=== PATIENT | male | born 1995 | race Caucasian/White ===

== ENCOUNTER 2022-07-18 18:43 | Emergency (ER) | payer SELFPAY ==
[2022-07-18] MEDS ORDERED: Ibuprofen 800 MG TAB ONE (19:07)
[2022-07-18] MEDS ORDERED: Ondansetron ODT 4 MG TAB ONE (19:08)
== END 2022-07-18 19:37 | disposition home or self-care (01) ==
LOC: BURERS 18:43
DX: U07.1 COVID-19 (principal)
CPT/HCPCS: 99283; Q0162

== ENCOUNTER 2022-08-14 12:27 | Emergency (ER) | payer SELFPAY ==
[2022-08-14] MEDS ORDERED: Lidocaine Viscous Sol 2% 15 ml UD Cup ONE (12:54)
[2022-08-14] MEDS ORDERED: Bupivacaine 0.5% 10 ML VIAL ONE (12:54)
== END 2022-08-14 13:46 | disposition home or self-care (01) ==
LOC: BURERS 12:27
DX: K04.7 Periapical abscess without sinus (principal)
CPT/HCPCS: 64400; J3490